=== PATIENT | male | born 1950 | race African-American/Black ===

== ENCOUNTER → 2017-03-15 | Outpatient (CLI) | payer OTHER ==
[~2017-03-15] MED LIST: GADOBUTROL 10 ML VIAL IVP ONE
== END ==
LOC: FIMAGING 09:25
DX: H35.82 Retinal ischemia (principal)
CPT/HCPCS: 70543; A9585

== ENCOUNTER → 2017-04-04 | Outpatient (CLI) | payer OTHER | LOC: BHFA 13:15 | PROVIDERS: ATTEND Internal Medicine Cardiovascular Disease | DX: H35.82 Retinal ischemia (principal) ==